=== PATIENT | female | born 1965 | race Caucasian/White ===

== ENCOUNTER 2018-09-05 10:32 | Emergency (ER) | payer MEDICARE, MEDICAID ==
[~2018-09-05] VITALS: Ht 157.5 cm; Wt 87.4 kg
[~2018-09-05 10:32] MED LIST: NO HOME MEDS
[2018-09-05 11:10] LABS: CLARITY,URINE CLEAR (Clear); COLOR,URINE YELLOW (Yellow); GLUCOSE, URINE NEGATIVE (Neg); KETONES,URINE NEGATIVE (Neg); LEUKOCYTE ESTERASE ,URINE NEGATIVE (Neg); NITRITES, URINE NEGATIVE (Neg); OCCULT BLOOD,URINE NEGATIVE (Neg); PROTEIN,URINE NEGATIVE (Neg)
[2018-09-05 11:11] LABS: URINE HCG NEGATIVE (NEG)
[2018-09-05 11:13] LABS: UA COLLECTION TYPE CLN CATCH MIDSTREAM
[2018-09-05 11:49] VITALS: BP 106/75
[2018-09-05] MEDS ORDERED: CYCL-1 PO (12:40)
[2018-09-05] MEDS ORDERED: ketorolac trometh. 30mg/ml inj. IM ONE (12:40)
== END 2018-09-05 13:29 | disposition home or self-care (01) ==
LOC: ER 10:33
DX: M54.5 Low back pain (principal); F12.90 Cannabis use, unspecified, uncomplicated; F11.90 Opioid use, unspecified, uncomplicated; G89.29 Other chronic pain; Z86.14 Personal history of Methicillin resistant Staphylococcus aureus infection; Z90.49 Acquired absence of other specified parts of digestive tract; Z98.84 Bariatric surgery status; Z98.890 Other specified postprocedural states; Z98.51 Tubal ligation status; Z91.040 Latex allergy status; Z88.6 Allergy status to analgesic agent; Z79.899 Other long term (current) drug therapy
CPT/HCPCS: 81003; 81025; 96372; 99283; J1885

== ENCOUNTER → 2019-03-10 | Day surgery (SDC) | payer MEDICARE, MEDICAID ==
[~2019-03-10] VITALS: Ht 157.5 cm; Wt 90.1 kg
[~2019-03-10] MED LIST changes: +ASPI81TA52 PO; +BUPIVAcaine/PF 2.5 mg/ml (0.25%) 30ml vial ONE; +DOCU-267 PO; +ESTR1PAT30 TOP; +LEVO25TA7 PO; +MEDR2.5T7 PO; +METH-603 PO; +MORP10SO22 PO; -NO HOME MEDS; +OMEP40CA13 PO; +acetaminophen 1,000mg/100ml IV 100 ML IV PRN; +ceFAZolin 1000mg inj ONE; +ceFOXitin 2 GM ADDvantage bag 100 ML IV ONE; +ceFOXitin 2 GM ADDvantage bag 50 ML IV ONE; +diazepam 5mg tablet PO ONE; +famotidine 10mg tablet PO ONE; +famotidine 20mg tablet PO ONE; +fentaNYL /PF 50mcg/ml 5ml ampule ONE; +ketorolac trometh. 30mg/ml inj. IV ONE; +meperidine/PF 25mg/ml syringe IV PRN; +midazolam 2 mg/2 ml injection ONE; +morphine 4 MG/ML inj SYRINge IV PRN; +ondansetron/PF 4mg/2ml inj IM ONE; +ondansetron/PF 4mg/2ml inj IV PRN; +proCHLORperazine 10 MG/2 ml inj IV PRN; +propofol inj 20 ML IV ONE; +ringers solution, lacted 1,000 ML IV SCH; +rocuronium 10mg/ml inj IV ONE; +sevoflurane 250ml liquid IH ONE; +sugammadex 200mg/2ml injection IV ONE
[2019-03-10 12:41] LABS: BASOPHILS % (AUTO) 0.5 % (0-1); EOSINOPHILS # (AUTO) 0.3 X10'3 (0-0.9); LYMPHOCYTES # (AUTO) 1.8 X10'3 (1.1-4.8); MEAN CORPUSCULAR HEMOGLOBIN 31.3 PG (27.0-31.0); MEAN CORPUSCULAR HGB CONC 33.6 g/dL (33.0-36.5); MEAN CORPUSCULAR VOLUME 93.2 FL (78-98); MEAN PLATELET VOLUME 9.2 FL (7.4-10.4); MONOCYTES # (AUTO) 0.5 X10'3 (0-0.9); MONOCYTES % (AUTO) 10.3 % (2-12); NEUTROPHILS # (AUTO) 2.3 X10'3 (1.8-7.7); NEUTROPHILS % (AUTO) 47.2 % (42-75); PRE OP HEMATOCRIT 42.3 % (35.0-45.0); PRE OP HEMOGLOBIN 14.2 g/dL (12.0-16.0); PRE OP PLATELET COUNT 193 X10'3 (140-440); RED BLOOD COUNT 4.54 X10'6 (4.20-5.60); RED CELL DISTRIBUTION WIDTH 13.7 % (11.5-14.5)
[2019-03-10 12:55] LABS: ALBUMIN 3.4 G/DL (3.4-5.0); ALBUMIN/GLOBULIN RATIO 0.8 (1.1-1.5); ALKALINE PHOSPHATASE 67 IU/L (46-116); BLOOD UREA NITROGEN 10 MG/DL (7-18); BUN/CREATININE RATIO 15.2 (6.6-38.0); CALCIUM 8.6 MG/DL (8.5-10.1); CHLORIDE 104 MMOL/L (99-107); CREATININE 0.66 MG/DL (0.40-0.90); PRE OP ALT 17 U/L (30-65); PRE OP ANION GAP 6 (8-16); PRE OP AST 21 U/L (10-37); PRE OP BILIRUB, TOTAL 0.3 MG/DL (0.0-1.0); PRE OP GLUCOSE 82 MG/DL (70-104); PRE OP POTASSIUM 4.3 MMOL/L (3.4-5.1); PRE OP SODIUM 138 MMOL/L (135-145); TOTAL CARBON DIOXIDE 28.5 MMOL/L (24-32); TOTAL PROTEIN 7.5 G/DL (6.4-8.2); eGFR > 90 ML/MIN
[2019-03-10 12:56] VITALS: BP 103/68
--- NOTE | 2019-03-10 14:00 | NUR ---
NURSE GAVE PT AN UPDATE. SURG IS DELAYED DUE TO SURGERIES RUNNING LONG. PT VERY UPSET AND SCREAMING SHES GOING HOME.
--- NOTE | 2019-03-10 14:45 | NUR ---
PT AGREED TO STAY FOR SURG. SEDATON GIVEN. THEN SHE ASKED FOR WATER OR SOMETHING TO DRINK. NURSE EXPLAINED THAT SHE COULDNT HAVE SOMETHING TO DRINK AND GO TO SURG, SHE SAID WHAT ABOUT CANDY. NURSE SAID NO CANDY OR WATER AND EXPLAINED WHY. PT SAID GIVE ME MY BAG I GOING TO GET THE CANDY MYSELF. NURSE SAID IF YOU WANT SURG YOU CANT HAVE CANDY, I ASKED HER TO GIVE IT TO ME. SHE SAID I DONT HAVE ANY IN MY BAG. SHE INSISTED I CLOSE THE DOOR.
--- NOTE | 2019-03-10 16:15 | NUR ---
PT HAS BEEN QUIETLY RESTING IN ROOM WATCHING TV AND TALKING ON THE PHONE. DR AVILA NOTIFIED OF THE SITUATION
[2019-03-10 17:33] VITALS: BP 145/88
--- NOTE | 2019-03-10 17:33 | NUR ---
Received from OR via [facility] , accompanied by Anesthesiologist A[place]IN and report given by Anesthesiolgist. PATIENT WITH 22G PIV IN LEFT UE RUNNING LR AT 100. PAINFUL AND MEDICATED UPON ARRIVAL. 4 ABDOMINAL LAP SITES PRESENT. A "TOLERABLE PAIN LEVEL IS 4". PATIENT STATES SHE TAKES NARCOTICS DAILY. VSS. Addendum: 03/10/19 at 1741 by Brant Martinez RN, RN Amended: Links added.
[2019-03-10 17:43] VITALS: BP 143/99
[2019-03-10 17:53] VITALS: BP 141/105
--- NOTE | 2019-03-10 18:03 | NUR ---
PATIENT MEDICATED FOR PAIN UPON ARRIVAL. MORE MEDS ADMINISTERED. MD CALLED FOR MORE PAIN MEDS. PATIENT SWEARING AND BELITTLING THIS RN. REFUSING ACETAMINOPHEN IV, TORADOL IV, TORE OUT PIV AND SCREAMING THAT SHE WANTS TO GO HOME. VITAL SIGNS ALL WNL. ABDOMINAL DRESSINGS ARE CDI. PATIENT STATING THAT SHE DOESN'T WANT OTHER MEDICATIONS. 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 DAUGHTER CALLED AND SHE IS IN ROUTE TO SOFTWARE DEVELOPMENT MANAGER PATIENT. ALL DC INSTRUCTIONS COVERED. OUT VIA WHEELCHAIR TO DAUGHTERS CAR WHERE SHE WAS DRIVEN HOME. Addendum: 03/10/19 at 1824 by Brant Walker - LAM RN Amended: Links added.
--- NOTE | 2019-03-10 18:23 | NUR ---
INFORMED PATIENT THAT WE HAVE MORE MEDICATIONS BUT PATIENT ADAMANTLY REFUSING...EVEN AFTER REMOVING HER OWN IV. Addendum: 03/10/19 at 1824 by Brant Martinez RN RN Amended: Links added.
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
== END | disposition home or self-care (01) ==
LOC: PAS 10:43
PROVIDERS: ATTEND Surgery
DX: K80.10 Calculus of gallbladder with chronic cholecystitis without obstruction (principal); Z98.84 Bariatric surgery status; Z96.653 Presence of artificial knee joint, bilateral; Z98.890 Other specified postprocedural states; E11.9 Type 2 diabetes mellitus without complications; E03.9 Hypothyroidism, unspecified; Z87.442 Personal history of urinary calculi; Z91.040 Latex allergy status; Z88.5 Allergy status to narcotic agent; F12.90 Cannabis use, unspecified, uncomplicated; Z87.891 Personal history of nicotine dependence; Z79.899 Other long term (current) drug therapy; Z86.19 Personal history of other infectious and parasitic diseases; Z80.52 Family history of malignant neoplasm of bladder; Z80.0 Family history of malignant neoplasm of digestive organs
CPT/HCPCS: 36415; 47562; 80053; 82948; 85025; 93005; C9399; J0131; J0690; J0694; J1885; J2175; J2250; J2270; J2704; J3010; J3490; J7120; 88304; A4215; A4618; A7000

== ENCOUNTER 2022-12-05 16:06 | Emergency (ER) | payer MEDICARE, MEDICAID ==
[~2022-12-05] VITALS: Ht 157.5 cm; Wt 91.4 kg
[~2022-12-05 16:06] MED LIST changes: -BUPIVAcaine/PF 2.5 mg/ml (0.25%) 30ml vial ONE; +DOCU-262 PO; -DOCU-267 PO; -OMEP40CA13 PO; +OMEP40CA21 PO; -acetaminophen 1,000mg/100ml IV 100 ML IV PRN; -ceFAZolin 1000mg inj ONE; -ceFOXitin 2 GM ADDvantage bag 100 ML IV ONE; -ceFOXitin 2 GM ADDvantage bag 50 ML IV ONE; -diazepam 5mg tablet PO ONE; -famotidine 10mg tablet PO ONE; -famotidine 20mg tablet PO ONE; -fentaNYL /PF 50mcg/ml 5ml ampule ONE; -ketorolac trometh. 30mg/ml inj. IV ONE; -meperidine/PF 25mg/ml syringe IV PRN; -midazolam 2 mg/2 ml injection ONE; -morphine 4 MG/ML inj SYRINge IV PRN; -ondansetron/PF 4mg/2ml inj IM ONE; -ondansetron/PF 4mg/2ml inj IV PRN; -proCHLORperazine 10 MG/2 ml inj IV PRN; -propofol inj 20 ML IV ONE; -ringers solution, lacted 1,000 ML IV SCH; -rocuronium 10mg/ml inj IV ONE; -sevoflurane 250ml liquid IH ONE; -sugammadex 200mg/2ml injection IV ONE
[2022-12-05 16:13] VITALS: BP 101/67; PULSE 83; RESP 16; TEMP 98.6; O2SAT 98
== END 2022-12-05 19:48 | disposition left against medical advice (07) ==
LOC: ER 16:07
DX: M25.512 Pain in left shoulder (principal); Z53.21 Procedure and treatment not carried out due to patient leaving prior to being seen by health care provider
CPT/HCPCS: 99281

== ENCOUNTER 2023-08-29 16:51 | Emergency (ER) | payer MEDICAID, MEDICARE ==
[~2023-08-29] VITALS: Ht 157.5 cm; Wt 84.9 kg
[2023-08-29] MEDS: diazepam 5mg tablet PO ONE (19:28)
[2023-08-29] MEDS: sulfamethoxazole/trimethoprim DS (800/160mg) tablet PO ONE (19:28)
[2023-08-29] MEDS: LIDOcaine 1% W/epiNEPHrine 1:100,000 20ml vial SQ ONE (19:43)
[2023-08-29] MEDS ORDERED: SULF1TAB49 PO (20:32)
[2023-08-29] MEDS ORDERED: BUTA-245 PO (20:32)
[2023-08-29 20:53] VITALS: BP 144/80; PULSE 87; RESP 17; TEMP 99.5; O2SAT 98
== END 2023-08-29 20:54 | disposition home or self-care (01) ==
LOC: ER 16:52
DX: S00.03XA Contusion of scalp, initial encounter (principal); L02.414 Cutaneous abscess of left upper limb; L02.416 Cutaneous abscess of left lower limb; F12.90 Cannabis use, unspecified, uncomplicated; Z91.040 Latex allergy status; Z88.5 Allergy status to narcotic agent; Z79.82 Long term (current) use of aspirin; Z79.899 Other long term (current) drug therapy; Z98.51 Tubal ligation status; Z98.890 Other specified postprocedural states; W19.XXXA Unspecified fall, initial encounter; Y93.89 Activity, other specified; Y92.89 Other specified places as the place of occurrence of the external cause; Y99.8 Other external cause status
CPT/HCPCS: 10061; 70450; 99284; A6266; A6258

== ENCOUNTER 2023-09-22 01:24 | Emergency (ER) | payer MEDICARE ==
[~2023-09-22] VITALS: Ht 157.5 cm; Wt 70.5 kg
[~2023-09-22 01:24] MED LIST changes: +BUTA-245 PO
[2023-09-22] MEDS ORDERED: HYDROmorphone/PF 0.2 MG/ML SYRINGE IM ONE (01:45)
[2023-09-22] MEDS: HYDROmorphone 1 mg/ml syringe IM ONE (02:02)
[2023-09-22] MEDS: diazepam 5mg tablet PO ONE (02:05)
[2023-09-22] MEDS ORDERED: CYCL-1 PO (05:42)
[2023-09-22] MEDS: HYDROcodone/acetaminophen 5mg/325mg tablet PO ONE (05:56)
[2023-09-22 06:03] VITALS: BP 108/71; PULSE 59; RESP 18; TEMP 97.5; O2SAT 97
== END 2023-09-22 06:04 | disposition home or self-care (01) ==
LOC: ER 01:25
DX: S20.212A Contusion of left front wall of thorax, initial encounter (principal); F12.90 Cannabis use, unspecified, uncomplicated; F11.90 Opioid use, unspecified, uncomplicated; G89.29 Other chronic pain; Z88.8 Allergy status to other drugs, medicaments and biological substances; Z91.040 Latex allergy status; Z79.82 Long term (current) use of aspirin; Z79.899 Other long term (current) drug therapy; Z90.49 Acquired absence of other specified parts of digestive tract; Z95.1 Presence of aortocoronary bypass graft; Z98.51 Tubal ligation status; Z98.890 Other specified postprocedural states; W01.0XXA Fall on same level from slipping, tripping and stumbling without subsequent striking against object, initial encounter; Y93.89 Activity, other specified; Y92.89 Other specified places as the place of occurrence of the external cause; Y99.8 Other external cause status
CPT/HCPCS: 71101; 96372; 99284; J1170

== ENCOUNTER 2024-01-20 11:16 | Emergency (ER) | payer MEDICARE, OTHER ==
[~2024-01-20] VITALS: Ht 157.5 cm; Wt 87.3 kg
[~2024-01-20 11:16] MED LIST changes: +CYCL-1 PO
[2024-01-20 11:29] VITALS: TEMP 98
[2024-01-20] MEDS: acetaminophen 325mg tablet PO ONE (14:41)
[2024-01-20 15:30] VITALS: BP 118/79; PULSE 87; RESP 18; O2SAT 98
[2024-01-20 16:05] LABS: STREP A SCREEN NEGATIVE (Neg)
== END 2024-01-20 16:04 | disposition home or self-care (01) ==
LOC: ER 11:16
DX: R07.89 Other chest pain (principal); R07.0 Pain in throat; R51.9 Headache, unspecified; F12.90 Cannabis use, unspecified, uncomplicated; Z88.5 Allergy status to narcotic agent; Z88.6 Allergy status to analgesic agent; Z98.51 Tubal ligation status; Z90.49 Acquired absence of other specified parts of digestive tract; Z98.84 Bariatric surgery status; Z87.440 Personal history of urinary (tract) infections; W19.XXXA Unspecified fall, initial encounter; Y93.89 Activity, other specified; Y92.89 Other specified places as the place of occurrence of the external cause; Y99.8 Other external cause status
CPT/HCPCS: 70450; 71101; 87081; 87880; 99284

== ENCOUNTER 2024-03-06 11:44 | Emergency (ER) | payer OTHER, MEDICAID ==
[~2024-03-06] VITALS: Ht 157.5 cm; Wt 88.3 kg
[2024-03-06 12:19] LABS: BILIRUBIN,URINE NEGATIVE (Neg); CLARITY,URINE CLEAR (Clear); COLOR,URINE YELLOW (Yellow); GLUCOSE, URINE NEGATIVE (Neg); KETONES,URINE NEGATIVE (Neg); LEUKOCYTE ESTERASE ,URINE NEGATIVE (Neg); NITRITES, URINE NEGATIVE (Neg); OCCULT BLOOD,URINE NEGATIVE (Neg); PROTEIN,URINE NEGATIVE (Neg); UROBILINOGEN,URINE 0.2 E.U/dL (0.2-1.0)
[2024-03-06 12:20] LABS: UA COLLECTION TYPE CLN CATCH MIDSTREAM
[2024-03-06] MEDS: orphenadrine citrate 60mg/2ml inj. IM ONE (12:53)
[2024-03-06] MEDS: LIDOcaine 5% patch TP ONE (12:53)
[2024-03-06] MEDS: dexamethasone sod phosphate 10mg/ml inj IM STA (12:54)
[2024-03-06] MEDS: ketorolac trometh 15mg/ml vial 15 MG/ML ML IM ONE ×2 (12:54)
[2024-03-06] MEDS ORDERED: GABA100C PO (14:16)
[2024-03-06] MEDS ORDERED: CYCL-1 PO (14:16)
[2024-03-06 14:35] VITALS: BP 135/74; PULSE 76; RESP 15; TEMP 98.2; O2SAT 97
== END 2024-03-06 14:37 | disposition home or self-care (01) ==
LOC: ER 11:44
DX: M54.59 Other low back pain (principal); Z98.51 Tubal ligation status; Z90.49 Acquired absence of other specified parts of digestive tract; Z88.5 Allergy status to narcotic agent; Z91.040 Latex allergy status; Z79.899 Other long term (current) drug therapy; Z79.82 Long term (current) use of aspirin
CPT/HCPCS: 81003; 96372; 99284; J1100; J1885; J2360

== ENCOUNTER 2024-04-23 05:56 | Emergency (ER) | payer MEDICARE, MEDICAID ==
[~2024-04-23] VITALS: Ht 157.5 cm; Wt 86.2 kg
[~2024-04-23 05:56] MED LIST changes: +GABA100C PO
[2024-04-23 07:14] LABS: BILIRUBIN,URINE NEGATIVE (Neg); CLARITY,URINE SLIGHTLY CLOUDY (Clear); GLUCOSE, URINE NEGATIVE (Neg); KETONES,URINE 15 mg/dl (Neg); LEUKOCYTE ESTERASE ,URINE TRACE (Neg); NITRITES, URINE NEGATIVE (Neg); OCCULT BLOOD,URINE NEGATIVE (Neg); PROTEIN,URINE TRACE mg/dl (Neg)
[2024-04-23 07:19] LABS: COLOR,URINE DARK YELLOW (Yellow); UA COLLECTION TYPE CLN CATCH MIDSTREAM
[2024-04-23 07:24] LABS: BACTERIA,URINE 1+ /HPF (Neg); MUCUS STRANDS MODERATE /LPF (Neg); RBC,URINE 0-2 /HPF (0-2); SQUAMOUS EPITHELIAL CELL,UR MANY /LPF (FEW); STARCH,URINE FEW /HPF (NEGATIVE); TRANSITIONAL EPI CELLS,URINE FEW /HPF; YEAST FEW /HPF (NEGATIVE)
[2024-04-23] MEDS: mag hydrox/Alum hydrox/simeth 30ml oral suspension PO ONE (08:53)
[2024-04-23] MEDS: pantoprazole 40 MG vial IV ONE ×2 (08:53→10:31)
[2024-04-23] MEDS: normal saline 1000ML IV soln IVB ONE (08:53)
[2024-04-23 09:09] LABS: BASOPHILS # (AUTO) 0.1 X10'3 (0-0.2); BASOPHILS % (AUTO) 2.3 % (0-1); EOSINOPHILS # (AUTO) 0.8 X10'3 (0-0.9); EOSINOPHILS % (AUTO) 14.8 % (0-6); HEMATOCRIT 40.1 % (35.0-45.0); LYMPHOCYTES # (AUTO) 1.8 X10'3 (1.1-4.8); LYMPHOCYTES % (AUTO) 35.2 % (21-51); MEAN CORPUSCULAR HEMOGLOBIN 28.7 PG (27.0-31.0); MEAN CORPUSCULAR HGB CONC 32.5 g/dL (33.0-36.5); MEAN CORPUSCULAR VOLUME 88.4 FL (78-98); MEAN PLATELET VOLUME 9.4 FL (7.4-10.4); MONOCYTES # (AUTO) 0.4 X10'3 (0-0.9); MONOCYTES % (AUTO) 8.3 % (2-12); NEUTROPHILS % (AUTO) 39.4 % (42-75); PLATELET COUNT 255 X10'3 (140-440); RED BLOOD COUNT 4.54 X10'6 (4.20-5.60); RED CELL DISTRIBUTION WIDTH 15.3 % (11.5-14.5); WHITE BLOOD COUNT 5.1 X10'3 (4.5-11.0)
[2024-04-23 09:20] LABS: ALANINE AMINOTRANSFERASE 17 U/L (12-78); ALBUMIN/GLOBULIN RATIO 0.8 (1.1-1.5); ALKALINE PHOSPHATASE 56 IU/L (46-116); ANION GAP 3 (8-16); ASPARTATE AMINO TRANSFERASE 13 U/L (10-37); BILIRUBIN,DIRECT 0.1 MG/DL (0-0.3); BILIRUBIN,TOTAL 0.3 MG/DL (0.1-1.0); BLOOD UREA NITROGEN 15 MG/DL (7-18); BUN/CREATININE RATIO 22.7 (10.0-20.0); CALCIUM 8.9 MG/DL (8.5-10.1); CHLORIDE 106 MMOL/L (99-107); CREATININE 0.66 MG/DL (0.40-0.90); ETHANOL < 10 MG/DL (<10); GLUCOSE 86 MG/DL (70-104); MAGNESIUM 2.2 MG/DL (1.5-2.4); POTASSIUM 4.5 MMOL/L (3.5-5.1); SODIUM 142 MMOL/L (135-145); TOTAL CARBON DIOXIDE 33.2 MMOL/L (24-32); TOTAL PROTEIN 6.9 G/DL (6.4-8.2); eCRCL 72 ML/MIN; eGFR > 90 ML/MIN
[2024-04-23 09:55] LABS: URINE AMPHETAMINE SCREEN NEGATIVE (Neg); URINE BARBITUATE SCREEN NEGATIVE (Neg); URINE BENZODIAZEPINES SCREEN POSITIVE (Neg); URINE CANNABINOID SCREEN NEGATIVE (Neg); URINE COCAINE SCREEN NEGATIVE (Neg); URINE METHADONE SCREEN NEGATIVE (Neg); URINE OPIATE SCREEN NEGATIVE (Neg); URINE PHENCYCLIDINE SCREEN NEGATIVE (Neg)
[2024-04-23] MEDS ORDERED: OMEP40CA21 PO (10:15)
[2024-04-23] MEDS ORDERED: ONDA-243 PO (10:15)
[2024-04-23 10:26] VITALS: BP 119/81; PULSE 78; RESP 16; O2SAT 99
[2024-04-23] MEDS: ondansetron/PF 4mg/2ml inj IV ONE (10:31)
[2024-04-23 10:41] VITALS: TEMP 98.5
== END 2024-04-23 10:45 | disposition home or self-care (01) ==
LOC: ER 05:57
DX: E86.0 Dehydration (principal); R11.10 Vomiting, unspecified; F12.90 Cannabis use, unspecified, uncomplicated; K44.9 Diaphragmatic hernia without obstruction or gangrene; Z91.040 Latex allergy status; Z88.5 Allergy status to narcotic agent; Z90.49 Acquired absence of other specified parts of digestive tract; Z98.51 Tubal ligation status; Z98.84 Bariatric surgery status
CPT/HCPCS: 36415; 74176; 80048; 80076; 80305; 81001; 82948; 83735; 85025; 96365; 96366; 96375; 99285; G0480; J2405; J2470; J7030; 80320